=== PATIENT | male | born 1960 | race Caucasian/White ===

== ENCOUNTER 2018-09-19 07:16 | Day surgery (SDC) | payer OTHER ==
[2018-09-17 15:33] LABS: CLARITY,URINE CLEAR (Clear); COLOR,URINE STRAW (Yellow); GLUCOSE, URINE NEGATIVE (Neg); KETONES,URINE NEGATIVE (Neg); LEUKOCYTE ESTERASE ,URINE NEGATIVE (Neg); NITRITES, URINE NEGATIVE (Neg); OCCULT BLOOD,URINE TRACE-LYSED (Neg); PH,URINE 6.5 (4.8-8.0); PROTEIN,URINE NEGATIVE (Neg); UROBILINOGEN,URINE 0.2 E.U/dL (0.2-1.0)
[2018-09-17 15:35] LABS: BASOPHILS % (AUTO) 0.5 % (0-1); EOSINOPHILS # (AUTO) 0.2 X10'3 (0-0.9); EOSINOPHILS % (AUTO) 2.2 % (0-6); LYMPHOCYTES # (AUTO) 2.1 X10'3 (1.1-4.8); LYMPHOCYTES % (AUTO) 23.2 % (21-51); MEAN CORPUSCULAR HEMOGLOBIN 29.5 PG (27.0-31.0); MEAN CORPUSCULAR HGB CONC 33.2 % (33.0-36.5); MEAN CORPUSCULAR VOLUME 88.8 FL (78-98); MONOCYTES # (AUTO) 0.6 X10'3 (0-0.9); MONOCYTES % (AUTO) 7.1 % (2-12); PRE OP HEMATOCRIT 42.6 % (42.0-52.0); PRE OP HEMOGLOBIN 14.1 g/dL (14.0-17.9); PRE OP PLATELET COUNT 258 X10'3 (140-440); RED CELL DISTRIBUTION WIDTH 14.1 % (11.5-14.5)
[2018-09-17 15:39] LABS: UA COLLECTION TYPE VOIDED
[2018-09-17 15:53] LABS: ALBUMIN 3.8 G/DL (3.4-5.0); ALBUMIN/GLOBULIN RATIO 1.3 (1.1-1.5); ALKALINE PHOSPHATASE 73 IU/L (46-116); BLOOD UREA NITROGEN 15 MG/DL (7-18); BUN/CREATININE RATIO 16.9 (5.4-32.0); CHLORIDE 103 MMOL/L (99-107); CREATININE 0.89 MG/DL (0.60-1.10); PRE OP ALT 21 U/L (30-65); PRE OP ANION GAP 5 (8-16); PRE OP AST 10 U/L (10-37); PRE OP BILIRUB, TOTAL 0.3 MG/DL (0.0-1.0); PRE OP GLUCOSE 104 MG/DL (70-104); PRE OP SODIUM 140 MMOL/L (135-145); TOTAL CARBON DIOXIDE 32.2 MMOL/L (24-32); TOTAL PROTEIN 6.8 G/DL (6.4-8.2); eGFR 89 ML/MIN
[2018-09-17 15:56] LABS: PRE OP POTASSIUM 3.1 MMOL/L (3.4-5.1)
[2018-09-17 16:28] LABS: BACTERIA,URINE NONE SEEN /HPF (Neg); MUCUS STRANDS NONE SEEN /LPF (Neg); RBC,URINE 0-2 /HPF (0-2); SQUAMOUS EPITHELIAL CELL,UR FEW /LPF (FEW); WBC,URINE NONE SEEN /HPF (0-4)
[2018-09-19] VITALS (7 sets, daily range): BP systolic 120–169; BP diastolic 64–97
[~2018-09-19] VITALS: Ht 172.7 cm; Wt 97.5 kg
[~2018-09-19 07:16] MED LIST: ACTIFED PO; HYDR-4353 PO; cefazolin/dext.iso 2gm/100 ML IV ONE; famotidine 20mg tablet PO ONE; ringers solution, lacted 1,000 ML IV SCH
[2018-09-19 08:36] LABS: ISTAT ANION GAP 12 (8-12); ISTAT BUN 17 mg/dL (6-19); ISTAT CL 98 mmol/L (99-107); ISTAT CREATININE 0.8 mg/dL (0.8-1.3); ISTAT GLUCOSE 90 mg/dL (70-104); ISTAT HGB 13.6 g/dl (14.0-18.0); ISTAT Hct 40 %PCV (42-52); ISTAT IONIZED CALCIUM 1.16 mmol/L (1.03-1.32); ISTAT K 3.5 mmol/L (3.5-5.1); ISTAT NA 138 mmol/L (135-145); ISTAT TOTAL CO2 28 mmol/L (24-32); ISTAT eGFR > 90 ML/MIN; POC BUN/CREATININE RATIO 21.3 (5.4-32.0)
[2018-09-19] MEDS ORDERED: BUPIVAcaine/PF 2.5mg/ml (0.25%) 10ml vial ONE (09:46)
[2018-09-19] MEDS ORDERED: ceFAZolin 1000mg inj ONE (09:46)
[2018-09-19] MEDS ORDERED: ringers solution, lacted 1,000 ML IV SCH (10:45)
[2018-09-19] MEDS ORDERED: ketorolac trometh. 30mg/ml inj. IV ONE (10:45)
[2018-09-19] MEDS ORDERED: meperidine/PF 25mg/ml syringe IV PRN ×3 (10:45)
[2018-09-19] MEDS ORDERED: acetaminophen 1,000mg/100ml IV 100 ML IV PRN (10:45)
[2018-09-19] MEDS ORDERED: morphine 4 MG/ML inj SYRINge IV PRN ×2 (10:45)
[2018-09-19] MEDS ORDERED: labetalol 20mg/4ml (5mg/ml) syringe IV PRN (10:45)
[2018-09-19] MEDS ORDERED: ondansetron/PF 4mg/2ml inj IV PRN (10:45)
[2018-09-19] MEDS ORDERED: proCHLORperazine 10 MG/2 ml inj IV PRN (10:45)
[2018-09-19] MEDS ORDERED: midazolam 2 mg/2 ml injection ONE (10:51)
[2018-09-19] MEDS ORDERED: propofol inj 20 ML IV ONE (10:51)
[2018-09-19] MEDS ORDERED: fentaNYL /PF 50mcg/ml 5ml ampule ONE (10:51)
[2018-09-19] MEDS ORDERED: rocuronium 10mg/ml inj IV ONE (10:51)
[2018-09-19] MEDS ORDERED: sevoflurane 250ml liquid IH ONE (10:52)
[2018-09-19] MEDS ORDERED: ondansetron/PF 4mg/2ml inj ONE (11:33)
[2018-09-19] MEDS ORDERED: neostigmine methylsulfate 1 MG/ML 10ml vial ONE (11:33)
[2018-09-19] MEDS ORDERED: dexamethasone sod phosphate 4mg/ml inj. ONE (11:33)
[2018-09-19] MEDS ORDERED: glycopyrrolate 0.2mg/ml inj ONE (11:34)
[2018-09-19] MEDS ORDERED: HYDROcodone/acetaminophen 10/325mg tab PO ONE (13:05)
== END 2018-09-19 14:30 | disposition home or self-care (01) ==
LOC: PAS 07:16
PROVIDERS: ATTEND Surgery
DX: K40.91 Unilateral inguinal hernia, without obstruction or gangrene, recurrent (principal); I45.10 Unspecified right bundle-branch block; Z87.891 Personal history of nicotine dependence; Z87.442 Personal history of urinary calculi; Z79.891 Long term (current) use of opiate analgesic; Z79.899 Other long term (current) drug therapy; Z98.890 Other specified postprocedural states; Z83.3 Family history of diabetes mellitus
CPT/HCPCS: 36415; 49651; 80047; 80053; 81001; 85025; 93005; A6258; C1781; J0131; J0690; J1100; J1885; J2175; J2250; J2405; J2704; J2710; J3010; J3490; A4315; C1727; J7120

== ENCOUNTER 2023-06-27 11:31 | Emergency (ER) | payer BC, OTHER ==
[~2023-06-27] VITALS: Ht 172.7 cm; Wt 90.9 kg
[~2023-06-27 11:31] MED LIST changes: -ACTIFED PO; -HYDR-4353 PO; +LISI2.5T14 PO; -cefazolin/dext.iso 2gm/100 ML IV ONE; -famotidine 20mg tablet PO ONE; -ringers solution, lacted 1,000 ML IV SCH
[2023-06-27] MEDS ORDERED: ondansetron/PF 4mg/2ml inj IV ONE (15:25)
[2023-06-27] MEDS ORDERED: morphine 4 MG/ML inj SYRINge IV ONE (15:25)
[2023-06-27] MEDS ORDERED: normal saline 1000ML IV soln IVB ONE (15:25)
[2023-06-27] MEDS ORDERED: morphine 2 MG/ML inj. syringe IM ONE (16:10)
[2023-06-27] MEDS ORDERED: ondansetron 4mg rapidly disintigrating tab PO ONE (16:10)
[2023-06-27 16:47] LABS: BASOPHILS % (AUTO) 0.3 % (0-1); EOSINOPHILS % (AUTO) 0 % (0-6); HEMATOCRIT 43.4 % (42.0-52.0); HEMOGLOBIN 14.5 g/dl (14.0-17.9); LYMPHOCYTES # (AUTO) 0.6 X10'3 (1.1-4.8); LYMPHOCYTES % (AUTO) 4.7 % (21-51); MEAN CORPUSCULAR HEMOGLOBIN 30.4 PG (27.0-31.0); MEAN CORPUSCULAR HGB CONC 33.4 g/dL (33.0-36.5); MEAN CORPUSCULAR VOLUME 91.2 FL (78-98); MEAN PLATELET VOLUME 8.2 FL (7.4-10.4); MONOCYTES # (AUTO) 0.6 X10'3 (0-0.9); MONOCYTES % (AUTO) 4.8 % (2-12); NEUTROPHILS # (AUTO) 11.3 X10'3 (1.8-7.7); NEUTROPHILS % (AUTO) 90.2 % (42-75); PLATELET COUNT 246 X10'3 (140-440); RED BLOOD COUNT 4.76 X10'6 (4.70-6.10); WHITE BLOOD COUNT 12.5 X10'3 (4.5-11.0)
[2023-06-27 17:00] LABS: ALANINE AMINOTRANSFERASE 19 U/L (12-78); ALBUMIN 3.9 G/DL (3.4-5.0); ALBUMIN/GLOBULIN RATIO 1.4 (1.1-1.5); ALKALINE PHOSPHATASE 46 IU/L (46-116); ANION GAP 12 (8-16); ASPARTATE AMINO TRANSFERASE 11 U/L (10-37); BILIRUBIN,TOTAL 0.5 MG/DL (0.1-1.0); BLOOD UREA NITROGEN 22 MG/DL (7-18); BUN/CREATININE RATIO 20.8 (10.0-20.0); CALCIUM 9.1 MG/DL (8.5-10.1); CHLORIDE 106 MMOL/L (99-107); CREATININE 1.06 MG/DL (0.60-1.10); GLUCOSE 148 MG/DL (70-104); POTASSIUM 3.2 MMOL/L (3.5-5.1); SODIUM 143 MMOL/L (135-145); TOTAL PROTEIN 6.6 G/DL (6.4-8.2); eCRCL 72 ML/MIN; eGFR 71 ML/MIN
[2023-06-27] MEDS ORDERED: iohexol 300mg/ml 100ml inj. ONE (17:30)
[2023-06-27 18:07] VITALS: TEMP 98.6
[2023-06-27 18:11] LABS: BILIRUBIN,URINE NEGATIVE (Neg); CLARITY,URINE SLIGHTLY CLOUDY (Clear); COLOR,URINE STRAW (Yellow); GLUCOSE, URINE NEGATIVE (Neg); KETONES,URINE 40 mg/dl (Neg); LEUKOCYTE ESTERASE ,URINE NEGATIVE (Neg); NITRITES, URINE NEGATIVE (Neg); OCCULT BLOOD,URINE LARGE (Neg); PH,URINE 5.5 (4.8-8.0); PROTEIN,URINE NEGATIVE (Neg); UROBILINOGEN,URINE 0.2 E.U/dL (0.2-1.0)
[2023-06-27] MEDS ORDERED: CefTRIAXone 2gm/D5W 50ml BAG 50 ML IV ONE (18:15)
[2023-06-27 18:24] LABS: UA COLLECTION TYPE NON-SPECIFIED
[2023-06-27 18:27] LABS: BACTERIA,URINE NONE SEEN /HPF (Neg); MUCUS STRANDS NONE SEEN /LPF (Neg); RBC,URINE 50-100 /HPF (0-2); SQUAMOUS EPITHELIAL CELL,UR NONE SEEN /LPF (FEW)
[2023-06-27] MEDS ORDERED: potassium Cl 20 mEq SR tablet PO ONE (19:20)
[2023-06-27] MEDS ORDERED: oxyCODONE/APAP 5-325mg tablet PO ONE (19:20)
[2023-06-27] MEDS ORDERED: CEPH250T PO (19:22)
[2023-06-27] MEDS ORDERED: FLO0.4C PO ×2 (19:22)
[2023-06-27] MEDS ORDERED: OXYC-145 PO (19:22)
[2023-06-27 19:30] VITALS: BP 139/89; PULSE 78; O2SAT 98
[2023-06-27 19:39] VITALS: RESP 16
[2023-07-26] MEDS ORDERED: METF-438 PO (13:45)
[2023-07-26] MEDS ORDERED: INSU100V9 SQ (13:45)
[2023-07-26] MEDS ORDERED: LISI2.5T14 PO (13:45)
[2023-07-26] MEDS ORDERED: PIOG45TA65 PO (13:45)
== END 2023-06-27 20:21 | disposition home or self-care (01) ==
LOC: ER 11:32
DX: N20.9 Urinary calculus, unspecified (principal); N13.30 Unspecified hydronephrosis; K56.7 Ileus, unspecified; K46.9 Unspecified abdominal hernia without obstruction or gangrene; E87.6 Hypokalemia; E11.9 Type 2 diabetes mellitus without complications; Z79.2 Long term (current) use of antibiotics; Z79.899 Other long term (current) drug therapy
CPT/HCPCS: 36415; 74177; 80053; 81001; 82948; 84145; 85025; 87088; 96365; 96375; 99285; J0696; J2270; J2405; J3490; J7030; Q9967

== ENCOUNTER 2023-08-02 06:26 | Day surgery (SDC) | payer BC ==
[2023-07-26 13:48] LABS: BILIRUBIN,URINE NEGATIVE (Neg); CLARITY,URINE CLEAR (Clear); COLOR,URINE YELLOW (Yellow); GLUCOSE, URINE NEGATIVE (Neg); KETONES,URINE NEGATIVE (Neg); LEUKOCYTE ESTERASE ,URINE NEGATIVE (Neg); NITRITES, URINE NEGATIVE (Neg); OCCULT BLOOD,URINE TRACE-INTACT (Neg); PH,URINE 6.5 (4.8-8.0); PROTEIN,URINE NEGATIVE (Neg); UROBILINOGEN,URINE 0.2 E.U/dL (0.2-1.0)
[2023-07-26 14:00] LABS: ALBUMIN/GLOBULIN RATIO 1.4 (1.1-1.5); ALKALINE PHOSPHATASE 44 IU/L (46-116); BLOOD UREA NITROGEN 17 MG/DL (7-18); CALCIUM 9.5 MG/DL (8.5-10.1); CHLORIDE 105 MMOL/L (99-107); PRE OP ALT 22 U/L (30-65); PRE OP ANION GAP 8 (8-16); PRE OP AST 11 U/L (10-37); PRE OP BILIRUB, TOTAL 0.5 MG/DL (0.0-1.0); PRE OP GLUCOSE 107 MG/DL (70-104); PRE OP POTASSIUM 3.6 MMOL/L (3.4-5.1); PRE OP SODIUM 141 MMOL/L (135-145); TOTAL CARBON DIOXIDE 27.6 MMOL/L (24-32); TOTAL PROTEIN 6.9 G/DL (6.4-8.2)
[2023-07-26 14:16] LABS: BUN/CREATININE RATIO 21.5 (10.0-20.0); CREATININE 0.79 MG/DL (0.60-1.10); eGFR > 90 ML/MIN
[2023-07-26 14:30] LABS: BASOPHILS % (AUTO) 0.5 % (0-1); EOSINOPHILS # (AUTO) 0.3 X10'3 (0-0.9); EOSINOPHILS % (AUTO) 3.8 % (0-6); LYMPHOCYTES # (AUTO) 1.7 X10'3 (1.1-4.8); LYMPHOCYTES % (AUTO) 24.5 % (21-51); MEAN CORPUSCULAR HEMOGLOBIN 30.6 PG (27.0-31.0); MEAN CORPUSCULAR HGB CONC 33.4 g/dL (33.0-36.5); MEAN CORPUSCULAR VOLUME 91.4 FL (78-98); MEAN PLATELET VOLUME 8.5 FL (7.4-10.4); MONOCYTES # (AUTO) 0.6 X10'3 (0-0.9); MONOCYTES % (AUTO) 8.7 % (2-12); NEUTROPHILS # (AUTO) 4.2 X10'3 (1.8-7.7); NEUTROPHILS % (AUTO) 62.5 % (42-75); PRE OP HEMATOCRIT 42.2 % (42.0-52.0); PRE OP HEMOGLOBIN 14.1 g/dL (14.0-17.9); PRE OP PLATELET COUNT 239 X10'3 (140-440); PRE OP WHITE BLOOD COUNT 6.8 10'3 (4.8-10.8); RED BLOOD COUNT 4.62 X10'6 (4.70-6.10)
[2023-07-26 14:45] LABS: UA COLLECTION TYPE CLN CATCH MIDSTREAM
[2023-07-26 14:46] LABS: BACTERIA,URINE NONE SEEN /HPF (Neg); RBC,URINE 0-2 /HPF (0-2); SQUAMOUS EPITHELIAL CELL,UR NONE SEEN /LPF (FEW); WBC,URINE 0-4 /HPF (0-4)
[~2023-08-02] VITALS: Ht 172.7 cm; Wt 93.0 kg
[2023-08-02] VITALS (13 sets, daily range): BP systolic 117–148; BP diastolic 59–92; PULSE 58–74; RESP 9–15; TEMP 98.4; O2SAT 93–97
[~2023-08-02 06:26] MED LIST changes: +INSU100V9 SQ; +METF-438 PO; +PIOG45TA65 PO; +cefazolin 2gm/D5W 100mL 100 ML IV ONE; +famotidine 20mg tablet PO ONE; +ringers solution, lacted 1,000 ML IV SCH
[2023-08-02] MEDS ORDERED: BUPIVAcaine/PF 2.5 mg/ml (0.25%) 30ml vial ONE (09:15)
[2023-08-02] MEDS ORDERED: proCHLORperazine 10 MG/2 ml inj IV PRN (09:25)
[2023-08-02] MEDS ORDERED: morphine 2 MG/ML inj. syringe IV PRN (09:25)
[2023-08-02] MEDS ORDERED: meperidine/PF 25mg/ml syringe IV PRN ×2 (09:25)
[2023-08-02] MEDS ORDERED: morphine 4 MG/ML inj SYRINge IV PRN (09:25)
[2023-08-02] MEDS ORDERED: ringers solution, lacted 1,000 ML IV SCH (09:25)
[2023-08-02] MEDS ORDERED: ondansetron/PF 4mg/2ml inj IV PRN (09:25)
[2023-08-02] MEDS ORDERED: fentaNYL/PF 50MCG/1 ML 2ML syringe ONE (09:31)
[2023-08-02] MEDS ORDERED: glycopyrrolate 0.2mg/ml inj ONE (09:31)
[2023-08-02] MEDS ORDERED: sevoflurane 250ml liquid IH ONE (09:31)
[2023-08-02] MEDS ORDERED: propofol inj 20 ML IV ONE (09:32)
[2023-08-02] MEDS ORDERED: rocuronium 10mg/ml inj IV ONE ×2 (09:32→10:46)
[2023-08-02] MEDS ORDERED: midazolam 1 mg/ML 2ml injection ONE (09:32)
[2023-08-02] MEDS ORDERED: dexamethasone sod phosphate 4mg/ml inj. ONE (10:45)
[2023-08-02] MEDS ORDERED: ondansetron/PF 4mg/2ml inj ONE (11:24)
[2023-08-02] MEDS ORDERED: neostigmine methylsulfate 1 MG/ML 10ml vial ONE (11:25)
[2023-08-02] MEDS ORDERED: acetaminophen 1,000mg/100ml IV 100 ML IV ONE (11:27)
--- NOTE | 2023-08-02 11:45 | NUR ---
Received from OR via , accompanied by Anesthesiologist and report given by Anesthesiolgist. PATIENT [id number], DENIES PAIN, V/S WNL, SCD ON , PIV 20G RUE, DERMABONDED LAPS SITES CLOSED CDI TO ABDOMEN. CLEAN AND DRY NO S/S OF COMPLICATIONS
[2023-08-02] MEDS: meperidine/PF 25mg/ml syringe IV PRN ×2 (11:46→12:09)
[2023-08-02] MEDS ORDERED: HYDROcodone/acetaminophen 10/325mg tab PO ONE (12:00)
--- NOTE | 2023-08-02 13:53 | NUR ---
PATIENT VOIDED IN TOILET. I HAVE REVIEWED D/C INSTRUCTIONS WITH PATIENT AND THEY HAVE VERBALIZED UNDERSTANDING OF INSTRUCTIONS. PATIENT D/C HOME WITH ALL BELONGINGS AND FAMILY GAVE TRANSPORT
== END 2023-08-02 13:53 | disposition home or self-care (01) ==
LOC: PAS 06:26
PROVIDERS: ATTEND Surgery
DX: K40.91 Unilateral inguinal hernia, without obstruction or gangrene, recurrent (principal); I10 Essential (primary) hypertension; E11.9 Type 2 diabetes mellitus without complications; M19.90 Unspecified osteoarthritis, unspecified site; Z87.442 Personal history of urinary calculi; Z79.4 Long term (current) use of insulin; Z79.899 Other long term (current) drug therapy; F17.210 Nicotine dependence, cigarettes, uncomplicated; Z72.89 Other problems related to lifestyle; Z98.890 Other specified postprocedural states
CPT/HCPCS: 36415; 49651; 80053; 81001; 82948; 85025; 93005; C1781; J0131; J0690; J1100; J2175; J2250; J2270; J2405; J2704; J2710; J3010; J3490; J7030; J7120; S2900; Z7506; Z7508; Z7512; A4215; A4618; C1758